=== PATIENT | female | born 1995 | race African-American/Black ===

== ENCOUNTER 2016-12-19 13:28 | Emergency (ER) | payer OTHER ==
[2016-12-19 14:51] LABS: URINE SOURCE CLEAN CATCH
[2016-12-19 14:58] LABS: URINE APPEARANCE CLOUDY; URINE BILIRUBIN NEG (NEG); URINE BLOOD NEG (NEG); URINE COLOR DK YELLOW; URINE GLUCOSE NEG (NEG); URINE KETONE TRACE (NEG); URINE LEUKOCYTE ESTERASE NEG (NEG); URINE NITRATE NEG (NEG); URINE PH 5.5 (5-8); URINE PROTEIN TRACE (NEG)
[2016-12-19 15:04] LABS: CULTURE INDICATED? NO
[2016-12-22 02:38] LABS: CHLAMYDIA TRACH Not Detected (Not Detected); N GONOR Not Detected (Not Detected)
== END 2016-12-19 15:20 | disposition home or self-care (01) ==
LOC: CFTX 13:28 → CED 13:28 → CFTX 15:06
PROVIDERS: Nurse Practitioner
DX: N76.0 Acute vaginitis (principal); Z20.2 Contact with and (suspected) exposure to infections with a predominantly sexual mode of transmission; F17.200 Nicotine dependence, unspecified, uncomplicated
CPT/HCPCS: 81003; 84703; 87491; 87591; 87808; 87905; 99284